=== PATIENT | female | born 1990 | race Two or more races ===

== ENCOUNTER 2020-09-03 13:38 | Outpatient (CLI) | payer OTHER | END 2020-09-03 13:40 | disposition home or self-care (01) | LOC: PPH VACUNA 13:38 | DX: Z23 Encounter for immunization (principal) ==

== ENCOUNTER 2020-10-03 08:00 | Outpatient (CLI) | payer OTHER | END 2020-10-03 08:30 | disposition home or self-care (01) | LOC: PPH VACUNA 08:00 | DX: Z23 Encounter for immunization (principal) ==